=== PATIENT | female | born 1990 | race Caucasian/White ===

== ENCOUNTER 2021-08-13 08:14 | Inpatient (IN) ==
[2021-08-13] MEDS ORDERED: OXYTOCIN 30 UNITS/500 ML BAG IV PRN ×3 (09:07→22:39)
--- NOTE | 2021-08-13 09:19 | History & Physical Report ---
Date of Service August 13, 2021 Assessment & Plan (1) Encounter for supervision of normal in multigravida: Plan: Admit to L&D. IV fluids, EFM/toco. Labs. Pitocin. OK for epidural when she desires. Admission and Anticipated Discharge Date Admission Date: August 13, 2021 History of Present Illness Chief Complaint: IOL Primary Care Provider: NO PCP 31yo @ 41 05/17 here for IOL. Rubella non-immune, will need MMR after delivery. Allergies Allergy/AdvReac Type Severity Reaction Status Date / Time No Known Allergies Allergy Verified 08/12/21 20:28 Home Medications Medication Instructions Recorded Confirmed Type prenat.vits,lan,[id number] 1 tab PO DAILY #90 tab 12/26/20 08/13/21 Rx ferrous sulfate 325 mg (65 mg 325 mg PO DAILY 06/20/21 08/13/21 History iron) tablet breast pump #1 ea 08/09/21 Rx Patient History Medical History No acute medical problems Surgical History H/O removal of cyst left shoulder H/O rhinoplasty Family History Mother Hypertension Denies family history of Ovarian cancer Prostate cancer Breast cancer Colorectal cancer Social History Smoking Status: Never smoker Second Hand Exposure: No; Hx Alcohol Use: No Hx Substance Use: No Preferred Language: Citizen Of [place] Communication Ability: Effective Visual Impairment: No Limitations Hearing Ability: Normal General Internal Medicine Physician Required: No Beliefs That Will Affect Care: None marital status: marital status details: Blake Martínez (32) Current Living Situation: Spouse Current Living Situation Comment: lives with spouse, no pets current occupational status: unemployed and student current occupation: online student Other Information That Helps Us Care for You: No Feels Safe at Home: Yes Assistive Devices: Glasses Review of Systems All systems reviewed & are unremarkable except as noted in HPI & below Physical Exam Physical Exam: Cervix 3/100/-3, sorenson bulb still in place. Constitutional: WD/WN, vitals as above Respiratory: normal respiratory effort, lungs clear to auscultation no respiratory distress Cardiovascular: Rate/Rhythm: regular rate and regular rhythm Gastrointestinal (Abdomen): Inspection/Auscultation: abdomen normal to inspection Percussion/Palpation: abdomen soft; abdomen nontender Gravid. No s/s chorio or abruption. Skin: no rashes, warm and dry Psychiatric: A+Ox3, euthymic affect Results & Data ([facility]) Vital Signs (Past 12 Hours) Vital Signs Temp Pulse Resp BP 08/13/21 08:35 36.8 C 75 18 120/75 08/13/21 08:23 75 120/75 Monitoring External Monitor FHT Cat 1 Tocodynamometer irreg, rare Coding Level of Care Code None Diagnoses Encounter for supervision of normal in multigravida Z34.80
[2021-08-13 09:24] LABS: Hemoglobin 12.3 g/dL (12.0-16.0); Mean Corpuscular Hemoglobin 28.5 pg (25-34); Mean Corpuscular Hgb Conc 32.4 g/dL (32-36); Mean Corpuscular Volume 88.2 fL (80-100); Mean Platelet Volume 10.5 fL (7.4-10.4); Platelet Count 184 K/uL (130-400); RDW Coefficient of Variation 13.3 % (11.5-14.5); RDW Standard Deviation 42.9 fL (36.4-46.3); Red Blood Count 4.31 M/uL (4.2-5.4); White Blood Count 11.38 K/uL (4.8-10.8)
[2021-08-13] MEDS: LACTATED RINGER'S 1,000 ML IV PRN ×3 (09:48→18:19)
[2021-08-13] MEDS ORDERED: ePHEDrine sulfate 50 MG/ML AMP ONE (11:44)
[2021-08-13] MEDS ORDERED: BUPIVACAINE 0.25% 30 ML VIAL ONE (11:45)
[2021-08-13] MEDS ORDERED: fentaNYL citrate 100 MCG/2 ML VIAL ONE (11:45)
[2021-08-13] MEDS ORDERED: SODIUM CHLORIDE 0.9% INJ 10 ML VIAL ONE (11:45)
[2021-08-13] MEDS ORDERED: fentaNYL 2MCG/ML ROPIVACAINE 1.25MG/ML 100 ML BAG EPI ONE (11:46)
--- NOTE | 2021-08-13 13:10 | Anesthesiology Consultation ---
Date of Service August 13, 2021 Assessment & Plan Chart Review Chart Review: Acceptable Risk for Labor Epidural Consults Requested none History Height/Weight Height: 5 ft 8 in Weight: 77.111 kg Allergies Allergy/AdvReac Type Severity Reaction Status Date / Time No Known Allergies Allergy Verified 08/12/21 20:28 Medications Home Medications Medication Instructions Recorded Confirmed Last Taken prenat.vits,lan,[id number] 1 tab PO DAILY #90 tab 12/26/20 08/13/21 08/12/21 08:00 ferrous sulfate 325 mg (65 mg 325 mg PO DAILY 06/20/21 08/13/21 08/12/21 08:00 iron) tablet breast pump #1 ea 08/09/21 Unknown Active Medications Generic Name Dose Route Start Last Admin Trade Name Freq PRN Reason Stop Dose Admin Oxytocin 30 units in 500 mls @ 7 mls/hr 08/13/21 09:07 08/13/21 12:30 Pitocin IV 08/15/21 09:06 0.42 units/hr .Q24H PRN 7 mls/hr Labor Induction/Augmentation Titration Protocol 0.42 UNITS/HR Lactated Ringer's 1,000 mls @ 125 mls/hr 08/13/21 09:07 08/13/21 12:11 Lr IV 08/15/21 09:06 125 mls/hr .Q8H PRN Administration L&D Protocol Protocol Past Medical History Medical History No acute medical problems Past Family History Family History Mother Hypertension Denies family history of Ovarian cancer Prostate cancer Breast cancer Colorectal cancer Past Surgical History Surgical History H/O removal of cyst left shoulder H/O rhinoplasty Social History Smoking Status: Never smoker Hx Alcohol Use: No Hx Substance Use: No substance use type: does not use Physical Exam Vital Signs Last Vital Signs Temp 36.8 C 08/13/21 08:35 Pulse 82 08/13/21 13:07 Resp 18 08/13/21 12:45 BP 102/66 08/13/21 13:05 Pulse Ox 98 08/13/21 13:07 Testing Laboratory Results 08/13/21 09:11
[2021-08-13] MEDS ORDERED: NALOXONE HCL 1 MG in SODIUM CHLORIDE 0.9% 1000ML 1,000 ML IV PRN (13:19)
[2021-08-13] MEDS ORDERED: fentaNYL 2MCG/ML ROPIVACAINE 1.25MG/ML 100 ML BAG EPI PRN (13:19)
[2021-08-13] MEDS ORDERED: diphenhydrAMINE 50 MG/ML VIAL IV PRN (13:19)
[2021-08-13] MEDS ORDERED: NALBUPHINE HCL INJ 10 MG/ML AMP IV PRN (13:19)
[2021-08-13] MEDS ORDERED: NALOXONE HCL 0.4 MG/1 ML VIAL/CARP IV PRN (13:19)
[2021-08-13] MEDS ORDERED: ePHEDrine sulfate 50 MG/ML AMP IV PRN (13:19)
--- NOTE | 2021-08-13 14:46 | Labor Progress Brief Note ---
Date of Service August 13, 2021 Subjective Feeling better with epidural. FHT Cat 1 [place] Q 2-3 SVE 4-5/80/-1. Akers bulb in vagina. AROM clear fluid. Continue labor. Assessment & Plan Admission and Anticipated Discharge Date Admission Date: August 13, 2021 Results & Data ([facility]) Vital Signs (Past 12 Hours) Vital Signs Temp Pulse Resp BP Pulse Ox 08/13/21 14:42 81 98 08/13/21 14:37 81 98 08/13/21 14:36 78 118/66 08/13/21 14:32 99 H 97 08/13/21 14:27 86 97 08/13/21 14:22 105 H 98 08/13/21 14:19 78 118/83 08/13/21 14:17 76 98 08/13/21 14:12 101 H 99 08/13/21 14:07 81 98 08/13/21 14:04 84 121/80 08/13/21 14:02 80 99 08/13/21 13:57 82 99 08/13/21 13:52 81 98 08/13/21 13:49 86 128/81 08/13/21 13:47 93 H 99 08/13/21 13:42 81 98 08/13/21 13:37 72 98 08/13/21 13:34 108 H 108/67 08/13/21 13:32 86 97 08/13/21 13:27 91 H 98 08/13/21 13:22 78 97 08/13/21 13:20 36.8 C 81 110/66 08/13/21 13:17 94 H 98 08/13/21 13:12 78 99 08/13/21 13:07 82 98 08/13/21 13:05 78 102/66 08/13/21 13:04 18 08/13/21 13:02 97 H 99 08/13/21 12:57 77 98 08/13/21 12:52 86 99 08/13/21 12:48 87 101/58 L 08/13/21 12:47 87 98 08/13/21 12:45 80 18 110/59 L 08/13/21 12:42 87 98 08/13/21 12:39 92 H 107/57 L 08/13/21 12:37 104 H 98 08/13/21 12:33 94 H 120/79 08/13/21 12:32 92 H 98 08/13/21 12:30 82 119/73 08/13/21 12:29 18 08/13/21 12:27 80 98 08/13/21 12:22 80 100 08/13/21 12:17 80 100 08/13/21 12:12 87 98 08/13/21 12:07 74 99 08/13/21 12:02 75 98 08/13/21 11:57 78 99 08/13/21 11:52 82 100 08/13/21 11:50 74 117/71 08/13/21 11:47 79 99 08/13/21 11:42 86 100 08/13/21 11:37 75 100 08/13/21 11:11 77 114/66 08/13/21 08:35 36.8 C 75 18 120/75 08/13/21 08:23 75 120/75 08/13/21 08:22 36.8 C 18 Coding Level of Care Code None
--- NOTE | 2021-08-13 19:45 | Labor Progress Brief Note ---
Date of Service August 13, 2021 Subjective Does feel some bowel movement-like pressure, but otherwise comfortable with epidural. FHT 150s, mod keisha, +accels. Has begun to show variable decelerations. SVE 10/100/+2 station Will begin pushing, also will continue to use resuscitative measures if variables continue. Assessment & Plan Admission and Anticipated Discharge Date Admission Date: August 13, 2021 Results & Data ([facility]) Vital Signs (Past 12 Hours) Vital Signs Temp Pulse Resp BP Pulse Ox 08/13/21 19:40 96 H 98 08/13/21 19:35 94 H 98 08/13/21 19:30 105 H 98 08/13/21 19:26 114 H 123/85 08/13/21 19:25 111 H 99 08/13/21 19:20 95 H 98 08/13/21 19:15 75 99 08/13/21 19:11 103 H 116/88 08/13/21 19:10 92 H 99 08/13/21 19:05 85 98 08/13/21 19:00 87 97 08/13/21 18:56 115 H 133/75 08/13/21 18:55 101 H 97 08/13/21 18:50 82 98 08/13/21 18:45 93 H 98 08/13/21 18:42 80 125/77 08/13/21 18:40 89 97 08/13/21 18:35 87 99 08/13/21 18:30 99 H 99 08/13/21 18:27 78 124/78 08/13/21 18:25 100 H 99 08/13/21 18:20 108 H 98 08/13/21 18:15 89 98 08/13/21 18:12 89 120/74 08/13/21 18:10 36.7 C 102 H 18 97 08/13/21 18:05 80 98 08/13/21 18:00 98 H 98 08/13/21 17:56 96 H 110/67 08/13/21 17:55 101 H 98 08/13/21 17:50 79 97 08/13/21 17:48 86 108/62 08/13/21 17:47 85 97 08/13/21 17:42 75 97 08/13/21 17:37 73 97 08/13/21 17:34 74 110/64 08/13/21 17:32 75 97 08/13/21 17:27 69 98 08/13/21 17:22 73 98 08/13/21 17:19 78 117/72 08/13/21 17:17 80 98 08/13/21 17:12 76 99 08/13/21 17:07 79 98 08/13/21 17:02 72 98 08/13/21 16:57 85 98 08/13/21 16:52 81 99 08/13/21 16:49 78 112/69 08/13/21 16:47 79 99 08/13/21 16:43 36.6 C 18 08/13/21 16:42 82 99 08/13/21 16:37 74 98 08/13/21 16:34 78 110/61 08/13/21 16:32 79 99 08/13/21 16:27 78 97 08/13/21 16:22 78 98 08/13/21 16:17 69 97 08/13/21 16:12 73 97 08/13/21 16:07 83 98 08/13/21 16:04 74 114/71 08/13/21 16:02 74 97 08/13/21 15:57 77 97 08/13/21 15:52 104 H 98 08/13/21 15:50 36.6 C 18 08/13/21 15:49 81 118/73 08/13/21 15:47 68 98 08/13/21 15:42 78 98 08/13/21 15:37 84 99 08/13/21 15:34 71 118/74 08/13/21 15:32 75 98 08/13/21 15:27 80 98 08/13/21 15:22 80 98 08/13/21 15:17 93 H 97 08/13/21 15:12 93 H 98 08/13/21 15:07 82 99 08/13/21 15:04 78 102/71 08/13/21 15:02 83 98 08/13/21 15:00 36.6 C 18 08/13/21 14:57 82 99 08/13/21 14:52 78 98 08/13/21 14:49 82 116/67 08/13/21 14:47 78 98 08/13/21 14:42 81 98 08/13/21 14:37 81 98 08/13/21 14:36 78 118/66 08/13/21 14:32 99 H 97 08/13/21 14:27 86 97 08/13/21 14:22 105 H 98 08/13/21 14:19 78 118/83 08/13/21 14:17 76 98 08/13/21 14:12 101 H 99 08/13/21 14:07 81 98 08/13/21 14:04 84 121/80 08/13/21 14:02 80 99 08/13/21 13:57 82 99 08/13/21 13:52 81 98 08/13/21 13:49 86 128/81 08/13/21 13:47 93 H 99 08/13/21 13:42 81 98 08/13/21 13:37 72 98 08/13/21 13:34 108 H 108/67 08/13/21 13:32 86 97 08/13/21 13:27 91 H 98 08/13/21 13:22 78 97 08/13/21 13:20 36.8 C 81 110/66 08/13/21 13:17 94 H 98 08/13/21 13:12 78 99 08/13/21 13:07 82 98 08/13/21 13:05 78 102/66 08/13/21 13:04 18 08/13/21 13:02 97 H 99 08/13/21 12:57 77 98 08/13/21 12:52 86 99 08/13/21 12:48 87 101/58 L 08/13/21 12:47 87 98 08/13/21 12:45 80 18 110/59 L 08/13/21 12:42 87 98 08/13/21 12:39 92 H 107/57 L 08/13/21 12:37 104 H 98 08/13/21 12:33 94 H 120/79 08/13/21 12:32 92 H 98 08/13/21 12:30 82 119/73 08/13/21 12:29 18 08/13/21 12:27 80 98 08/13/21 12:22 80 100 08/13/21 12:17 80 100 08/13/21 12:12 87 98 08/13/21 12:07 74 99 08/13/21 12:02 75 98 08/13/21 11:57 78 99 08/13/21 11:52 82 100 08/13/21 11:50 74 117/71 08/13/21 11:47 79 99 08/13/21 11:42 86 100 08/13/21 11:37 75 100 08/13/21 11:11 77 114/66 08/13/21 08:35 36.8 C 75 18 120/75 08/13/21 08:23 75 120/75 08/13/21 08:22 36.8 C 18 Coding Level of Care Code None
--- NOTE | 2021-08-13 22:24 | Delivery Summary ---
Vaginal Delivery Summary Date of Service August 13, 2021 Vaginal Delivery Summary Vaginal Delivery Summary: Pre-delivery diagnoses: 31yo @ 41 /, IOL, chorioamnionitis Post-delivery diagnoses: same Procedure: spontaneous vaginal delivery Surgeon: Rhonda Spencer DO Complications: none Findings: Viable male . Apgars: 7/9. Weight pending, please see nursery records. Estimated blood loss: 500ml Description of delivery: The patient progressed to complete with epidural anesthesia. She then began to push. She spontaneously vaginally delivered a viable from the cephalic presentation. The head delivered in ALEA position. Compound right hand delivered spontaneously, and baby rotated for delivery. The anterior shoulder delivered, followed by the posterior shoulder, followed by the body. The baby was placed on mother's abdomen and a spontaneous cry was heard. Delayed cord clamping was employed, and the cord was doubly clamped and cut. A segment was retained for cord gases. Cord blood was obtained. The placenta was delivered spontaneously intact with a 3-vessel cord. The uterus and vagina were swept of clots and debris. IV pitocin was given. The uterus became firm. The cervix, vagina, and perineum were inspected and a 2nd degree perineal laceration and bilateral sulcal vaginal tears were noted. These were repaired with 3-0 vicryl. There were some oozing edges that stopped bleeding with direct pressure. Dejon powder was applied, 4 sponges used as packing to apply direct pressure. Excellent hemostasis was observed. The mother and baby are recovering in stable and good condition in the room. Sponge, needle and instrument counts were correct x 2. Rhonda Spencer DO [facility] [place]
[2021-08-13] MEDS ORDERED: oxyCODONE/ACETAMINOPHEN 5mg/325mg TAB PO PRN (22:39)
[2021-08-13] MEDS ORDERED: DIPHTHERIA/TETANUS/PERTUSSIS 0.5 ML SYR/VIAL IM ONE (22:39)
[2021-08-13] MEDS ORDERED: BENZOCAINE 20% AER SPR 82.5 GM CAN EXT PRN (22:39)
[2021-08-13] MEDS ORDERED: GENTAMICIN CONSULT ACTIVE PRN (22:39)
[2021-08-13] MEDS ORDERED: bisacodyL 10 MG SUPP PR PRN (22:39)
[2021-08-13] MEDS ORDERED: GENTAMICIN SULFATE 380 MG in DEXTROSE 5% 100 ML IV ONE (23:00)
[2021-08-13] MEDS: AMPICILLIN 2,000 MG in SODIUM CHLOR 0.9% AD-VAN 100 ML IV SCH (23:12)
[2021-08-14 00:14] LABS: Base Excess Cord Arterial Bld -6.5 mEq/L (-9-1.8); CO2 Cord Arterial Blood 55 mmHg (39.1-73.5); HCO3 Cord Arterial Blood 22 mmol/L (19.7-28.5); PO2 Cord Arterial Blood 17 mmHg (4.1-31.7); pH Cord Arterial Blood 7.22 (7.1-7.38)
[2021-08-14 00:15] LABS: Base Excess Cord Venous Blood -5.2 mEq/L (-7.7-1.9); Cord Venous Blood HCO3 21 mmol/L (18.4-26.8); Cord Venous Blood PCO2 42 mmHg (30.4-57.2); Cord Venous Blood PO2 24 mmHg (14.1-43.3); Cord Venous Blood pH 7.31 (7.20-7.44); O2 Saturation Cord Venous Bld < 60.0 % (<68); Oxygen Sat Cord Arterial Blood < 60.0 % (<60)
[2021-08-14] MEDS: ACETAMINOPHEN 325 MG TAB PO PRN ×2 (00:30→07:58)
[2021-08-14] MEDS: IBUPROFEN 600 MG TAB PO PRN ×4 (00:31→20:25)
[2021-08-14] MEDS: HYDROCORTISONE ACETATE 25 MG SUPP PR PRN ×2 (00:43→14:08)
--- NOTE | 2021-08-14 00:49 | Obstetrical Progress Note ---
Date of Service August 14, 2021 Assessment & Plan Admission and Anticipated Discharge Date Admission Date: August 13, 2021 Subjective Patient has completed 2h recovery, doing well. Have started abx for t he chorio, is afebrile at this point. I pulled the vaginal packing out, this was saturated but not dripping. With the removal of the direct pressure of the packing, the oozing along the perineal tear was much less than earlier but there was enough that I felt that additional direct pressure may benefit her. Dejon powder was applied and a new packing was placed to provide additional direct pressure. Akers catheter placed to aid in bladder drainage while the packing is in place. Results & Data ([facility]) Vital Signs (Past 12 Hours) Vital Signs Temp Pulse Resp BP Pulse Ox 08/14/21 00:30 106 H 98 08/14/21 00:26 104 H 117/64 08/14/21 00:25 109 H 98 08/14/21 00:20 104 H 98 08/14/21 00:15 36.9 C 116 H 18 98 08/14/21 00:11 107 H 112/55 L 08/14/21 00:10 116 H 98 08/14/21 00:05 101 H 96 08/14/21 00:00 107 H 97 08/13/21 23:56 105 H 110/56 L 08/13/21 23:55 110 H 97 08/13/21 23:50 104 H 96 08/13/21 23:45 107 H 20 97 08/13/21 23:41 101 H 109/57 L 08/13/21 23:40 105 H 96 08/13/21 23:35 96 H 97 08/13/21 23:32 75 106/60 08/13/21 23:30 74 100/55 L 96 08/13/21 23:26 106 H 104/58 L 08/13/21 23:25 115 H 96 08/13/21 23:20 89 96 08/13/21 23:15 88 16 96 08/13/21 23:11 109 H 110/65 08/13/21 23:10 101 H 97 08/13/21 23:05 110 H 96 08/13/21 23:00 129 H 16 97 08/13/21 22:56 114 H 118/72 08/13/21 22:55 118 H 96 08/13/21 22:50 111 H 98 08/13/21 22:45 107 H 16 98 08/13/21 22:42 118 H 115/74 08/13/21 22:40 117 H 98 08/13/21 22:35 126 H 98 08/13/21 22:30 104 H 16 98 08/13/21 22:26 98 H 117/58 L 08/13/21 22:25 116 H 99 08/13/21 22:20 108 H 98 08/13/21 22:17 112 H 120/60 08/13/21 22:15 37.0 C 107 H 16 99 08/13/21 22:11 110 H 121/67 08/13/21 22:10 105 H 98 08/13/21 22:05 105 H 98 08/13/21 22:00 104 H 99 08/13/21 21:56 110 H 117/70 08/13/21 21:55 108 H 100 08/13/21 21:50 100 H 99 08/13/21 21:45 108 H 99 08/13/21 21:41 126 H 114/62 08/13/21 21:40 122 H 99 08/13/21 21:35 110 H 99 08/13/21 21:34 114 H 115/56 L 08/13/21 21:30 120 H 100 08/13/21 21:25 119 H 100 08/13/21 21:20 107 H 100 08/13/21 21:18 119 H 89 L 08/13/21 21:15 38.5 C H 116 H 16 100 08/13/21 21:12 106 H 119/92 08/13/21 21:10 97 H 100 08/13/21 21:05 108 H 100 08/13/21 21:00 104 H 98 08/13/21 20:58 107 H 117/59 L 08/13/21 20:55 106 H 100 08/13/21 20:50 113 H 100 08/13/21 20:47 101 H 92 08/13/21 20:45 111 H 99 08/13/21 20:41 121 H 140/63 08/13/21 20:40 111 H 100 08/13/21 20:35 119 H 98 08/13/21 20:30 108 H 99 08/13/21 20:26 129 H 149/84 H 08/13/21 20:25 139 H 99 08/13/21 20:20 93 H 100 08/13/21 20:15 100 H 100 08/13/21 20:11 83 115/71 08/13/21 20:10 119 H 99 08/13/21 20:05 110 H 99 08/13/21 20:00 92 H 99 08/13/21 19:55 100 H 97 08/13/21 19:50 121 H 98 08/13/21 19:45 107 H 99 08/13/21 19:40 96 H 98 08/13/21 19:35 94 H 98 08/13/21 19:30 105 H 98 08/13/21 19:26 114 H 123/85 08/13/21 19:25 111 H 99 08/13/21 19:20 37 C 95 H 16 98 08/13/21 19:15 75 99 08/13/21 19:11 103 H 116/88 08/13/21 19:10 92 H 99 08/13/21 19:05 85 98 08/13/21 19:00 87 97 08/13/21 18:56 115 H 133/75 08/13/21 18:55 101 H 97 08/13/21 18:50 82 98 08/13/21 18:45 93 H 98 08/13/21 18:42 80 125/77 08/13/21 18:40 89 97 08/13/21 18:35 87 99 08/13/21 18:30 99 H 99 08/13/21 18:27 78 124/78 08/13/21 18:25 100 H 99 08/13/21 18:20 108 H 98 08/13/21 18:15 89 98 08/13/21 18:12 89 120/74 08/13/21 18:10 36.7 C 102 H 18 97 08/13/21 18:05 80 98 08/13/21 18:00 98 H 98 08/13/21 17:56 96 H 110/67 08/13/21 17:55 101 H 98 08/13/21 17:50 79 97 08/13/21 17:48 86 108/62 08/13/21 17:47 85 97 08/13/21 17:42 75 97 08/13/21 17:37 73 97 08/13/21 17:34 74 110/64 04/05/22 17:32 75 97 08/13/21 17:27 69 98 08/13/21 17:22 73 98 08/13/21 17:19 78 117/72 08/13/21 17:17 80 98 08/13/21 17:12 76 99 08/13/21 17:07 79 98 08/13/21 17:02 72 98 08/13/21 16:57 85 98 08/13/21 16:52 81 99 08/13/21 16:49 78 112/69 08/13/21 16:47 79 99 08/13/21 16:43 36.6 C 18 08/13/21 16:42 82 99 08/13/21 16:37 74 98 08/13/21 16:34 78 110/61 08/13/21 16:32 79 99 08/13/21 16:27 78 97 08/13/21 16:22 78 98 08/13/21 16:17 69 97 08/13/21 16:12 73 97 08/13/21 16:07 83 98 08/13/21 16:04 74 114/71 08/13/21 16:02 74 97 08/13/21 15:57 77 97 08/13/21 15:52 104 H 98 08/13/21 15:50 36.6 C 18 08/13/21 15:49 81 118/73 08/13/21 15:47 68 98 08/13/21 15:42 78 98 08/13/21 15:37 84 99 08/13/21 15:34 71 118/74 08/13/21 15:32 75 98 08/13/21 15:27 80 98 08/13/21 15:22 80 98 08/13/21 15:17 93 H 97 08/13/21 15:12 93 H 98 08/13/21 15:07 82 99 08/13/21 15:04 78 102/71 08/13/21 15:02 83 98 08/13/21 15:00 36.6 C 18 08/13/21 14:57 82 99 08/13/21 14:52 78 98 08/13/21 14:49 82 116/67 08/13/21 14:47 78 98 08/13/21 14:42 81 98 08/13/21 14:37 81 98 08/13/21 14:36 78 118/66 08/13/21 14:32 99 H 97 08/13/21 14:27 86 97 08/13/21 14:22 105 H 98 08/13/21 14:19 78 118/83 08/13/21 14:17 76 98 08/13/21 14:12 101 H 99 08/13/21 14:07 81 98 08/13/21 14:04 84 121/80 08/13/21 14:02 80 99 08/13/21 13:57 82 99 08/13/21 13:52 81 98 08/13/21 13:49 86 128/81 08/13/21 13:47 93 H 99 08/13/21 13:42 81 98 08/13/21 13:37 72 98 08/13/21 13:34 108 H 108/67 08/13/21 13:32 86 97 08/13/21 13:27 91 H 98 08/13/21 13:22 78 97 08/13/21 13:20 36.8 C 81 110/66 08/13/21 13:17 94 H 98 08/13/21 13:12 78 99 08/13/21 13:07 82 98 08/13/21 13:05 78 102/66 08/13/21 13:04 18 08/13/21 13:02 97 H 99 08/13/21 12:57 77 98 08/13/21 12:52 86 99 08/13/21 12:48 87 101/58 L 08/13/21 12:47 87 98 PG Care Time/CCT Total # of Minutes Spent Total Time Spent with Patient: Total time spent is greater than 50% in coordination of care (as documented) at patient's floor/unit and/or counseling patient: Coding Level of Care Code None
[2021-08-14] MEDS: AMPICILLIN 2,000 MG in SODIUM CHLOR 0.9% AD-VAN 100 ML IV SCH ×3 (05:04→17:33)
[2021-08-14 06:56] LABS: Hematocrit (blood only) 31.4 % (37-47); Hemoglobin 10.7 g/dL (12.0-16.0)
--- NOTE | 2021-08-14 07:13 | Obstetrical Progress Note ---
Date of Service August 14, 2021 Assessment & Plan (1) Encounter for care and examination after delivery: Plan: 31 yo PPD _ s/p _(, LTCS) at _weeks -Continue routine care -Vitals reviewed- HDS, afebrile -O+, GBS-, requires MMR vaccine -Encourage ambulation, regular diet -Pain control with ibuprofen, acetaminophen PRN -Encourage -Will check packing to assess for bleeding with a voiding trial thereafter -F/u in 6 weeks withOB Admission and Anticipated Discharge Date Admission Date: August 13, 2021 Supervising Physician Co-Signing Physician Notes Resident Physician Supervision Note: I interviewed and examined the patient. Discussed with Dr. Mcmillan and agree with findings and plan as documented in the note. Any exceptions or clarifications are listed here: PPD#1 doing well. I removed vaginal packing during rounds this morning, not fully saturated. Vagina examined and hemostatic. Will plan to remove sorenson in 1-2 hours as long as bleeding is minimal. Documented By: Rhonda Spencer, Subjective PPD1 s/p . Patient seen and examined at bedside. Pt had bleeding overnight that required packing and irving. Sorenson catheter in place. Pt has not been ambulating since this has been in. Passing gas. Regular diet w/o N/V. Lochia difficult to assess with packing in, but reports there was a fair amount of bleeding which is why she required packing. . Pain 3/10. Review of Systems Review of Systems: All systems reviewed & are unremarkable except as noted in HPI & below Physical Exam Physical Exam: General: Alert, oriented, no acute distress Cardiac: Regular rate and rhythm, normal S1, S2. No murmurs appreciated. Respiratory: Clear to auscultation b/l with good air flow entry, symmetric chest rise and fall. No wheezes or crackles. No increased work of breathing or accessory muscle use Abdomen: Soft, nontender, nondistended. Fundus firm and palpable at level of umbilicus. No guarding or rebound. : Packing in place. Sorenson catheter in place with straw colored urine in bag. Skin: No rashes or lesions Extremities: Warm, dry, well-perfused with capillary refill <2s b/l. No lower extremity edema, erythema or swelling. Negative Kathy's sign b/l. Results & Data ([facility]) Vital Signs (Past 12 Hours) Vital Signs Temp Pulse Pulse Resp BP BP Pulse Ox 08/14/21 03:20 36.7 C 85 16 102/68 97 08/14/21 00:30 106 H 98 08/14/21 00:26 104 H 117/64 08/14/21 00:25 109 H 98 08/14/21 00:20 104 H 98 08/14/21 00:15 36.9 C 116 H 18 98 08/14/21 00:11 107 H 112/55 L 08/14/21 00:10 116 H 98 08/14/21 00:05 101 H 96 08/14/21 00:00 107 H 97 08/13/21 23:56 105 H 110/56 L 08/13/21 23:55 110 H 97 08/13/21 23:50 104 H 96 08/13/21 23:45 107 H 20 97 08/13/21 23:41 101 H 109/57 L 08/13/21 23:40 105 H 96 08/13/21 23:35 96 H 97 08/13/21 23:32 75 106/60 08/13/21 23:30 74 100/55 L 96 08/13/21 23:26 106 H 104/58 L 08/13/21 23:25 115 H 96 08/13/21 23:20 89 96 08/13/21 23:15 88 16 96 08/13/21 23:11 109 H 110/65 08/13/21 23:10 101 H 97 08/13/21 23:05 110 H 96 08/13/21 23:00 129 H 16 97 08/13/21 22:56 114 H 118/72 08/13/21 22:55 118 H 96 08/13/21 22:50 111 H 98 08/13/21 22:45 107 H 16 98 08/13/21 22:42 118 H 115/74 08/13/21 22:40 117 H 98 08/13/21 22:35 126 H 98 08/13/21 22:30 104 H 16 98 08/13/21 22:26 98 H 117/58 L 08/13/21 22:25 116 H 99 08/13/21 22:20 108 H 98 08/13/21 22:17 112 H 120/60 08/13/21 22:15 37.0 C 107 H 16 99 08/13/21 22:11 110 H 121/67 08/13/21 22:10 105 H 98 08/13/21 22:05 105 H 98 08/13/21 22:00 104 H 99 08/13/21 21:56 110 H 117/70 08/13/21 21:55 108 H 100 08/13/21 21:50 100 H 99 08/13/21 21:45 108 H 99 08/13/21 21:41 126 H 114/62 08/13/21 21:40 122 H 99 08/13/21 21:35 110 H 99 08/13/21 21:34 114 H 115/56 L 08/13/21 21:30 120 H 100 08/13/21 21:25 119 H 100 08/13/21 21:20 107 H 100 08/13/21 21:18 119 H 89 L 08/13/21 21:15 38.5 C H 116 H 16 100 08/13/21 21:12 106 H 119/92 08/13/21 21:10 97 H 100 08/13/21 21:05 108 H 100 08/13/21 21:00 104 H 98 08/13/21 20:58 107 H 117/59 L 08/13/21 20:55 106 H 100 08/13/21 20:50 113 H 100 08/13/21 20:47 101 H 92 08/13/21 20:45 111 H 99 08/13/21 20:41 121 H 140/63 08/13/21 20:40 111 H 100 08/13/21 20:35 119 H 98 08/13/21 20:30 108 H 99 08/13/21 20:26 129 H 149/84 H 08/13/21 20:25 139 H 99 08/13/21 20:20 93 H 100 08/13/21 20:15 100 H 100 08/13/21 20:11 83 115/71 08/13/21 20:10 119 H 99 08/13/21 20:05 110 H 99 08/13/21 20:00 92 H 99 08/13/21 19:55 100 H 97 08/13/21 19:50 121 H 98 08/13/21 19:45 107 H 99 08/13/21 19:40 96 H 98 08/13/21 19:35 94 H 98 08/13/21 19:30 105 H 98 08/13/21 19:26 114 H 123/85 08/13/21 19:25 111 H 99 08/13/21 19:20 37 C 95 H 16 98 08/13/21 19:15 75 99 08/13/21 19:11 103 H 116/88 08/13/21 19:10 92 H 99
[2021-08-14] MEDS: DOCUSATE SODIUM 100 MG CAP PO SCH ×2 (07:58→20:27)
[2021-08-14] MEDS: PRENATAL VITAMIN 1 TAB PO SCH (07:58)
[2021-08-14] MEDS ORDERED: bisacodyL 5 MG TABEC PO SCH (20:00)
[2021-08-15] MEDS: HYDROCORTISONE ACETATE 25 MG SUPP PR PRN ×2 (03:53→16:35)
--- NOTE | 2021-08-15 07:07 | Obstetrical Progress Note ---
Date of Service August 15, 2021 Assessment & Plan (1) Encounter for care and examination after delivery: Plan: 31 yo PPD2 s/p at 40 1/7weeks -Continue routine care -Vitals reviewed- HDS, afebrile -O+, GBS-, requires MMR vaccine prior to D/C -Encourage ambulation, regular diet -Pain control with ibuprofen, acetaminophen PRN -Encourage -D/c home today -F/u in 6 weeks withOB Admission and Anticipated Discharge Date Admission Date: August 13, 2021 Supervising Physician Co-Signing Physician Notes Resident Physician Supervision Note: I interviewed and examined the patient. Discussed with Dr. Mcmillan and agree with findings and plan as documented in the note. Any exceptions or clarifications are listed here: [None] Documented By: Kiki Aguirre MD, FACOG Subjective PPD2 s/p . Patient seen and examined at bedside. Pt's bleeding has improved significantly and no longer requires packing. Akers removed and voiding and ambulating well. Passing gas. Regular diet w/o N/V. Lochia small. . Pain 2/10. Review of Systems Review of Systems: All systems reviewed & are unremarkable except as noted in HPI & below Physical Exam Physical Exam: General: Alert, oriented, no acute distress Cardiac: Regular rate and rhythm, normal S1, S2. No murmurs appreciated. Respiratory: Clear to auscultation b/l with good air flow entry, symmetric chest rise and fall. No wheezes or crackles. No increased work of breathing or accessory muscle use Abdomen: Soft, nontender, nondistended. Fundus firm and palpable at level of umbilicus. No guarding or rebound. Skin: No rashes or lesions Extremities: Warm, dry, well-perfused with capillary refill <2s b/l. No lower extremity edema, erythema or swelling. Negative Kathy's sign b/l. Results & Data ([facility]) Vital Signs (Past 12 Hours) Vital Signs Temp Pulse Resp BP Pulse Ox 08/15/21 03:45 36.5 C 84 18 109/70 08/15/21 00:00 36.9 C 89 18 109/69 98 08/14/21 20:35 36.9 C 98 H 18 117/79 98
[2021-08-15] MEDS: PRENATAL VITAMIN 1 TAB PO SCH (08:25)
[2021-08-15] MEDS: DOCUSATE SODIUM 100 MG CAP PO SCH ×2 (08:25→21:40)
[2021-08-15] MEDS: IBUPROFEN 600 MG TAB PO PRN ×3 (08:25→21:41)
[2021-08-15] MEDS ORDERED: bisacodyL 5 MG TABEC PO SCH (13:30)
[2021-08-15] MEDS: ACETAMINOPHEN 325 MG TAB PO PRN (21:40)
== END 2021-08-15 22:37 | disposition home or self-care (01) | DRG 807 ==
LOC: 4S1 08:14 → 4E2 08-14 02:46
DX: O41.1230 Chorioamnionitis, third trimester, not applicable or unspecified; O70.1 Second degree perineal laceration during delivery; Z37.0 Single live birth; Z3A.40 40 weeks gestation of pregnancy